=== PATIENT | female | born 1975 | race Caucasian/White ===

== ENCOUNTER 2018-11-08 18:49 | Emergency (ER) | payer OTHER ==
[2018-11-08 19:00] VITALS: BP 111/72
--- NOTE | 2018-11-08 19:01 | Event Note ---
ED Screening Note Date of service: 11/08/18 Time: 18:59 ED Screening Note: This is a 42 y.o. F. that presents to the ER with left foot pain. Denies injury. This initial assessment/diagnostic orders/clinical plan/treatment(s) is/are subject to change based on patients health status, clinical progression and re- assessment by fellow clinical providers in the ED. Further treatment and workup at subsequent clinical providers discretion. Patient/guardian urged not to elope from the ED as their condition may be serious if not clinically assessed and managed. Initial orders include: XR left foot
--- NOTE | 2018-11-08 21:05 | XRay Report ---
PROCEDURE: XR FOOT 3+V LT TECHNIQUE: Left foot 3 views HISTORY: dorsal foot pain COMPARISONS: FINDINGS: No acute fracture identified. No dislocation seen. Joint spaces are within normal limits. No erosive bony changes are identified. IMPRESSION: Negative foot series. This document is electronically signed by Sergio Wan MD., November 08 2018 09:03:50 PM ET
--- NOTE | 2018-11-08 21:33 | XRay Report ---
PROCEDURE: XR KNEE 3V LT TECHNIQUE: AP,oblique, and lateral views of the left knee HISTORY: Left knee pain and swelling COMPARISONS: None . FINDINGS: No acute fracture or dislocation is seen. The soft tissues are unremarkable with no evidence for supr apatellar joint effusion. The bony mineralization is normal. Mild narrowing of the lateral joint comp artment is noted. IMPRESSION: No acute soft tissue or bony abnormality of the left knee. This document is electronically signed by Anne Wilkerson MD., November 08 2018 09:31:56 PM ET
[2018-11-08] MEDS ORDERED: TORADOL IM ONE (22:16)
--- NOTE | 2018-11-08 22:21 | Emergency Department Report ---
ED Extremity Problem HPI - General Chief complaint: Extremity Injury, Lower Stated complaint: L LEG PAIN/SWOLLEN Time Seen by Provider: 11/08/18 18:58 Source: patient Mode of arrival: Ambulatory Limitations: No Limitations - History of Present Illness Initial comments: Patient is a 42-year-old female who presents the emergency department with complaints of left knee pain that radiates down the left leg that began 3 days ago. She states she has swelling to the left knee and left leg. She denies any fall or injury. She denies any recent long car or plane ride, recent surgery, or being on any hormones. Pt and pt's concerned for DVT. She has never had before. She denies any past medical history. She denies any allergies or medications. She does not take any daily medications. - Related Data Previous Rx's Medication Instructions Recorded Last Taken Type Ibuprofen [Motrin 800 MG tab] 800 mg PO Q8HR PRN #14 tablet 11/08/18 Unknown Rx Allergies Allergy/AdvReac Type Severity Reaction Status Date / Time No Known Allergies Allergy Unverified 11/08/18 18:54 ED Review of Systems ROS: Stated complaint: L LEG PAIN/SWOLLEN Other details as noted in HPI Comment: All other systems reviewed and negative ED Past Medical Hx - Past Medical History Previous Medical History?: No - Surgical History Past Surgical History?: No - Social History Smoking Status: Never Smoker - Medications Home Medications: Home Medications Medication Instructions Recorded Confirmed Last Taken Type Ibuprofen [Motrin 800 MG tab] 800 mg PO Q8HR PRN #14 tablet 11/08/18 Unknown Rx ED Physical Exam - General Limitations: No Limitations General appearance: alert, in no apparent distress - Head Head exam: Present: atraumatic, normocephalic - Eye Eye exam: Present: normal appearance, PERRL - ENT ENT exam: Present: mucous membranes moist - Extremities Exam Extremities exam: Present: other (TTP over the left lateral knee, FROM of the left knee, no obvious joint laxity, small amount of edema to the left knee, small superficial veins presents to the left anterior aaron, no edema down the rest of the left leg, distal pulses intact, no sensory deficit, no erythema, no increased warmth, no signs of infection) - Neurological Exam Neurological exam: Present: alert, oriented X3 - Psychiatric Psychiatric exam: Present: normal affect, normal mood - Skin Skin exam: Present: warm, dry, intact ED Course Vital Signs 11/08/18 11/09/18 18:59 00:00 Temperature 98.6 F Pulse Rate 80 80 Respiratory 16 16 Rate Blood Pressure 111/72 O2 Sat by Pulse 98 98 Oximetry ED Medical Decision Making - Lab Data Vital Signs 11/08/18 11/09/18 18:59 00:00 Temperature 98.6 F Pulse Rate 80 80 Respiratory 16 16 Rate Blood Pressure 111/72 O2 Sat by Pulse 98 98 Oximetry - Radiology Data Radiology results: report reviewed PROCEDURE: XR KNEE 3V LT TECHNIQUE: AP,oblique, and lateral views of the left knee HISTORY: Left knee pain and swelling COMPARISONS: None . FINDINGS: No acute fracture or dislocation is seen. The soft tissues are unremarkable with no evidence for suprapatellar joint effusion. The bony mineralization is normal. Mild narrowing of the lateral joint compartment is noted. IMPRESSION: No acute soft tissue or bony abnormality of the left knee. This document is electronically signed by Anne Wilkerson MD., November 08 2018 09:31:56 PM ET Transcribed By: [facility] Dictated By: ANNE WILKERSON MD Electronically Authenticated By: ANNE WILKERSON MD Signed Date/Time: 11/08/182132 PROCEDURE: XR FOOT 3+V LT TECHNIQUE: Left foot 3 views HISTORY: dorsal foot pain COMPARISONS: FINDINGS: No acute fracture identified. No dislocation seen. Joint spaces are within normal limits. No erosive bony changes are identified. IMPRESSION: Negative foot series. This document is electronically signed by Sergio Enrique MD., November 08 2018 09:03:50 PM ET Transcribed By: [facility] Dictated By: DEANNE ENRIQUE MD Electronically Authenticated By: DEANNE ENRIQUE MD Signed Date/Time: 11/08/182104 - Medical Decision Making Patient is a 42-year-old female who presents the emergency department with complaints of left knee pain that radiates down the left leg that began 3 days a go. She states she has swelling to the left knee and left leg. She denies any fall or injury. She denies any recent long car or plane ride, recent surgery, or being on any hormones. Pt and pt's concerned for DVT. She has never had before. She denies any past medical history. She denies any allergies or medications. She does not take any daily medications. on exam: TTP over the left lateral knee, FROM of the left knee, no obvious joint laxity, small amount of edema to the left knee, small superficial veins presents to the left anterior aaron, no edema down the rest of the left leg, distal pulses intact, no sensory deficit. XR of the left knee and left foot with no acute process. vitals are normal. no tachycardia. pt given toradol for knee discomfort. Discussed case with Dr. Raffaele Haney given pt and husbands concern for DVT, we do not have a vascular US tech in the ED at night, Dr. Raffaele Haney advised to give 5 mg of eliquis while in the ED and have pt return to the emergency room tomorrow between 9am-12 pm to have a US to r/o DVT. pt and agreeable with plan. will give pt eloise wrap to wrap left knee as needed for discomfort. advised to do rest, ice, compression, elevation. will give anti-inflammatory. discussed the importance of returning tomorrow (11/09/18) between 9am-12pm. return to the ED for any new or worsening symptoms. Critical care attestation.: If time is entered above; I have spent that time in minutes in the direct care of this critically ill patient, excluding procedure time. ED Disposition Clinical Impression: Left leg swelling Left knee pain Qualifiers: Chronicity: acute Qualified Code(s): M25.562 - Pain in left knee Disposition: DC-01 TO HOME OR SELFCARE Is pt being admited?: No Does the pt Need Aspirin: No Condition: Stable Instructions: Leg Edema (ED), Knee Pain (ED) Additional Instructions: return to the emergency room tomorrow (11/09/18) between 9am-12 pm to have an ultrasound of the left leg performed. use eloise wrap as needed for discomfort. please use rest, ice, compression, elevation. take medication as prescribed as needed. return to the emergency room for any new or worsening symptoms. Prescriptions: Ibuprofen [Motrin 800 MG tab] 800 mg PO Q8HR PRN #14 tablet PRN Reason: Pain, Moderate (4-6) Referrals: return, to the ER [Other] - [facility] [Provider Group] - 2-3 Days [facility] [Outside] - 2-3 Days [facility] [Outside] - 2-3 Days Time of Disposition: 22:56 Print Language: [place]
[2018-11-08] MEDS ORDERED: TORADOL PO ONE (23:00)
[2018-11-09] MEDS ORDERED: ELIQUIS PO ONE (23:00)
== END 2018-11-09 | disposition home or self-care (01) ==
LOC: ED 18:49
DX: M25.562 Pain in left knee (principal); R22.42 Localized swelling, mass and lump, left lower limb
CPT/HCPCS: 73562; 73630; 99283; J1885

== ENCOUNTER 2021-05-21 11:27 | Emergency (ER) | payer SELFPAY ==
[2021-05-21] MEDS ORDERED: CYCLOBENZAPRINE 10 MG TAB PO ONE (13:25)
[2021-05-21] MEDS ORDERED: IBUPROFEN 800 MG TAB PO ONE (13:25)
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
[2021-05-21 15:34] VITALS: BP 132/80
== END 2021-05-21 15:34 | disposition home or self-care (01) ==
LOC: ED 11:27
DX: S00.83XA Contusion of other part of head, initial encounter (principal); S20.211A Contusion of right front wall of thorax, initial encounter; X58.XXXA Exposure to other specified factors, initial encounter; Y93.89 Activity, other specified; Y92.89 Other specified places as the place of occurrence of the external cause; Y99.8 Other external cause status
CPT/HCPCS: 99283